=== PATIENT | female | born 1980 | race Caucasian/White ===

== ENCOUNTER 2021-10-10 13:32 | Outpatient (REF) | payer BC, SELFPAY ==
[2021-10-10 16:10] LABS: CT PCR NOT DETECTED (Not Detect.); NG PCR NOT DETECTED (Not Detect.)
[2021-10-11 11:03] LABS: BV Int Neg Control Negative (Negative); BV Int Pos Control Positive (Positive)
== END 2021-10-10 13:33 | disposition home or self-care (01) ==
LOC: HO.LAB 13:32
PROVIDERS: PCP Physician Assistant; Visit Provider Advanced Practice Midwife
DX: R30.0 Dysuria (principal); L29.2 Pruritus vulvae; Z20.2 Contact with and (suspected) exposure to infections with a predominantly sexual mode of transmission
CPT/HCPCS: 81003; 81025; 87086; 87480; 87491; 87510; 87591; 87660

== ENCOUNTER 2022-02-01 09:23 | Outpatient (REF) | payer BC, SELFPAY ==
--- NOTE | ~2022-02-01 | MM_ITS ---
EXAMINATION: MM SCREENING DIGITAL BREAST TOMOSYNTHESIS, BILATERAL CLINICAL INFORMATION: Screening. Asymptomatic. Age 41. No prior mammography. The lifetime risk of breast cancer based on the Tyrer-Cuzick Model is 11%. COMPARISON: None (current study represents initial baseline exam). TECHNIQUE: Digital breast tomosynthesis is performed in both the craniocaudal and mediolateral oblique views along with computer-aided detection (CAD). Synthesized 2D images are generated from the tomosynthesis. FINDINGS: The breasts are heterogeneously dense, which may obscure small masses (ACR BI-RADS breast composition Category c). Breast tissue composition borders on average fibroglandular. There are no significant masses, abnormal calcifications, or other abnormalities. The axilla and skin contours are unremarkable. MM/MM tomosynthesis screening BI IMPRESSION: No mammographic evidence of malignancy. ASSESSMENT: BI-RADS 1: Negative RECOMMENDATION: Routine annual mammography screening. This patient's information was entered into a reminder system with a target due date for their next mammogram.
== END 2022-02-01 09:24 | disposition home or self-care (01) ==
LOC: HO.MAMMO 09:23
PROVIDERS: Visit Provider Advanced Practice Midwife
DX: Z12.31 Encounter for screening mammogram for malignant neoplasm of breast (principal)
CPT/HCPCS: 77063; 77067

== ENCOUNTER 2024-03-24 07:40 | Outpatient (AMB) | payer OTHER, SELFPAY ==
--- NOTE | 2024-03-24 07:41 | A.OFFVIS_ITS ---
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 Doing well with no concerns. She tries to eat healthy and stays active with exercise, walking. Regular monthly menses. Currently is sexually active. has vasectomy. She denies vaginal itching and irritation. STI screening offered; she accepts. Denies family history of ovarian cancer. Family history of colon and breast cancer. Last pap smear 2017, negative. Mammogram: not up to date. [facility] Medical History (Updated 03/24/24 @ 07:55 by Alison Westbrook CNM) History of anxiety Family History (Updated 03/24/24 @ 07:48 by INEZ Brody) Maternal Grandmother Colon cancer Maternal Aunt History of breast cancer Social History Alcohol intake: never Patient Tobacco Use Status: Never used Tobacco Sexual orientation: Straight/Heterosexual Gender identity: Female Female Reproductive History Menstrual Date of last menstrual period: 02/23/24 control method: other (vasectomy) Total pregnancies: 6 Full term: 4 Number of Living Children: 4 Date of last pap smear: 05/04/18 (@[facility]) Date of Mammogram: 02/01/22 ([facility] 1) Review of Systems Const All systems reviewed & are unremarkable except as noted in HPI and below Reports as per HPI Eyes Reports no additional complaints ENT Reports no additional complaints Card Reports no additional complaints Resp Reports no additional complaints GI Reports as per HPI and Reports no additional complaints Reports as per HPI Musc Reports no additional complaints Skin/Breast Reports as per HPI Neuro Reports no additional complaints Psych Reports no additional complaints Endo Reports no additional complaints Russ/Lymph Reports no additional complaints Aller/Immun Reports no additional complaints Physical Exam Vital Signs: Last Vital Signs BP 110/68 03/24/24 07:43 BMI result Body Mass Index 29.2 Const General: cooperative, healthy appearing, no acute distress, well developed and alert Orientation/consciousness: patient oriented x3 HEENT Head: Yes normal to inspection Eyes General: appearance normal, both eyes and all related structures Neck Neck: Yes normal visual inspection Thyroid: Thyroid normal Chest Chest palpation & inspection: normal inspection of the chest and other (no puckering, dimpling, peau de orange, retraction, discharge, masses) Breast/axilla inspection: normal inspection of the breasts Breast/axilla palpation: normal palpation of the breasts Resp Effort & Inspection: normal respiratory effort GI Inspection: Yes normal to inspection Palpation (GI): Soft to palpation Rectal Exam - Female: deferred General: Yes bladder normal to palpation External Female Exam: normal external appearance and normal appearance of the urethra Speculum Exam - Vagina: normal appearance of the vagina, normal palpation and normal vaginal discharge Speculum Exam - Cervix: normal appearance of the cervix, normal palpation and Other cervical findings present (Bled slightly with Pap) Bimanual exam- vagina & uterus: normal bimanual exam, normal palpation, uterine size normal, bladder normal to palpation, normal palpation and non-tender Bimanual Exam- Adnexa, other: no masses Skin General skin exam: no rashes or lesions noted Rashes: no rashes Neuro General: patient oriented x3 Cognition (Neuro): normal cognition Extrem General: Yes normal to inspection Psych Attitude: cooperative Thought process: Normal thought process present Assessment & Plan Assessment & Plan (1) Encounter for well woman exam with routine gynecological exam: Code(s): Z01.419 - Encounter for gynecological examination (general) (routine) without abnormal findings Category: Medical Plan Discussed: Current recommendations for pap smears per ASCCP guidelines. Breast awareness and periodic breast exams. Maintain a healthy lifestyle including a well balanced diet and routine exercise. Mammogram yearly. Colonoscopy >45, or at risk sooner. Patient verbalizes understanding and agrees to the plan of care. She was given opportunity to ask questions and all questions were answered to the best of my ability. RTO in one year for annual crop nutrition scientist examination. This note is constructed using voice recognition software. While every effort has been made to ensure accuracy, synthetic department supervisor errors may have been included. Orders: Orders MM tomosynthesis screening BI Today Z12.31 - Encounter for screening mammogram for malignant neoplasm of breast Coding Level of Care Code Est Pt Prev Care 40-64y(42563) Diagnoses Encounter for well woman exam with routine gynecological exam Z01.419
[2024-03-24 07:43] VITALS: BP 110/68; BMI 29.2
== END 2024-03-24 08:17 | disposition home or self-care (01) ==
PROVIDERS: PCP Physician Assistant; Visit Provider Advanced Practice Midwife
DX: Z01.419 Encounter for gynecological examination (general) (routine) without abnormal findings (principal)
CPT/HCPCS: 99396

== ENCOUNTER 2024-03-24 07:40 | Outpatient (REF) | payer OTHER, SELFPAY | END 2024-03-24 07:41 | disposition home or self-care (01) | LOC: HO.LAB 07:40 | PROVIDERS: PCP Physician Assistant; Visit Provider Advanced Practice Midwife | DX: Z13.89 Encounter for screening for other disorder (principal) ==

== ENCOUNTER 2024-03-24 08:10 | Outpatient (REF) | payer OTHER, SELFPAY ==
[2024-03-24 17:39] LABS: Bacterial Vaginosis PCR NEGATIVE (Negative); Candida Group PCR NOT DETECTED (Not Detect); Candida glab krusei PCR NOT DETECTED (Not Detect); Trichomonas vaginalis PCR NOT DETECTED (Not Detect)
[2024-03-24 17:59] LABS: CT PCR NOT DETECTED (Not Detect.); NG PCR NOT DETECTED (Not Detect.)
[2024-03-26 15:58] LABS: HPV mRNA E6/E7 Not Detected (Not Detected)
== END 2024-03-24 08:11 | disposition home or self-care (01) ==
LOC: HO.LNP 08:10
PROVIDERS: Visit Provider Advanced Practice Midwife
DX: N89.8 Other specified noninflammatory disorders of vagina (principal)
CPT/HCPCS: 0352U; 87491; 87591; 87624; 88175

== ENCOUNTER 2025-07-18 14:41 | Outpatient (AMB) | payer OTHER, SELFPAY ==
--- NOTE | 2025-07-18 15:35 | AM.OFFWIN_ITS ---
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 - Her symptoms began this morning. - She reports that her son was dismissed from school with a fever on Friday, and her other child also has it, suggesting a viral illness is circulating in her household. - Associated symptoms include a cough an d nausea after trying to eat toast. - She denies nasal congestion. - For symptom management, she has taken Motrin and DayQuil. - She has a history of mild asthma. - She denies recent travel, CP, SOB, abd pain or diarrhea. - She tried eating toast and had nausea. Physical Exam General: Cooperative, healthy appearing, comfortable and no acute distress Orientation/consciousness: Patient oriented x3 Limitations: No limitations Head: Normal to inspection Ears: Hearing grossly normal bilaterally, external ears normal and TM's normal bilaterally Nose: Normal external nose present, normal nares present, and no nasal discharge present. Face and sinus: Sinuses nontender to palpation. Mouth: Normal oral and palatal mucosa present and moist mucous membranes noted. Throat: Tonsils normal. Uvula is midline. Posterior oropharynx with erythema and no exudates. Eyes: Appearance normal, both eyes and all related structures Neck: Normal visual inspection, full ROM. No lymphadenopathy noted. Respiratory: Clear to auscultation bilaterally. Normal respiratory effort, able to speak in complete sentences. No respiratory distress, not tachypneic, no tripod positioning and no use of accessory muscles. Cardiovascular: Regular rate and rhythm. Normal S1 and S2 Skin: No rashes or lesions noted Patient was informed and verbally consented to the use of an ambient scribe for clinic note documentation during this visit [facility] Medical History (Updated 03/24/24 @ 07:55 by Alison Westbrook CNM) History of anxiety Family History (Updated 03/24/24 @ 07:48 by INEZ Brody) Maternal Grandmother Colon cancer Maternal Aunt History of breast cancer Social History Alcohol intake: never Patient Tobacco Use Status: Never used Tobacco Sexual orientation: Straight/Heterosexual Gender identity: Female Review of Systems Const All systems reviewed & are unremarkable except as noted in HPI and below Physical Exam Vital Signs: Last Vital Signs Temp 100.3 F 07/18/25 15:36 Pulse 104 H 07/18/25 15:36 BP 104/66 07/18/25 15:36 Pulse Ox 99 07/18/25 15:36 Oxygen Delivery Method Room Air 07/18/25 15:36 BMI result Body Mass Index 28.1 Results AMB Rapid Strep AMB Rapid Strep Negative Last Edit by Diana Rodriguez CMA on 07/18/25 16:1 6 Assessment & Plan Assessment & Plan (1) Sore throat: Code(s): J02.9 - Acute pharyngitis, unspecified (2) Cough: Code(s): R05.9 - Cough, unspecified Qualifiers: Cough type: acute Qualified Code(s): R05.1 - Acute cough Plan Most likely Viral Syndrome rapid was negative plan - The patient's presentation with myalgia, headache, pharyngitis, and cough following exposure to family members with fever is consistent with a viral illness. - A rapid strep test was negative, making a bacterial cause less likely. - Awaiting results from a viral culture for further assessment. - Recommended symptomatic management by alternating Tylenol and Motrin. - Advised to adhere to a clear liquid diet due to associated nausea. - A prescription cough medicine will be sent to the pharmacy. - will give her a work note - follow up with PCP Orders: Orders SARS-CoV2/FLU/RSV Today R09.89 - Other specified symptoms and signs involving the circulatory and respiratory systems AMB Rapid Strep Screen Today Z13.9 - Encounter for screening, unspecified Medications: New benzonatate 100 mg PO bid-tid PRN 21 caps 0RF Cough 7 days Coding Level of Care Code Est Pt Level 3 (53664) Diagnoses Sore throat J02.9 Acute cough R05.1 Cough type: acute
[2025-07-18 15:36] VITALS: BP 104/66; PULSE 104; TEMP 37.9; O2SAT 99; BMI 28.1
--- OUTSIDE RECORDS SUMMARY | 2025-07-18 21:11 | XMS_ITS | Clinical Summary ---
Author Organization [address] Address [address] [place] [id number] Phone Care Team Providers Care Conveyor Belt Repairer Name Role Phone Cyndi Weston MD Primary Care Provider [phone] Allergies No known active allergies Medications sertraline (ZOLOFT) 50 mg tablet Take 1 tablet (50 mg total) by mouth 1 (one) time each day. 05/25/2024 Active cholecalciferol (VITAMIN D-3) 50 mcg (2,000 unit) capsule Take 1 capsule (2,000 Units total) by mouth. 11/19/2023 Active Active Problems Problem Noted Date Diagnosed Date Vitamin D deficiency 11/19/2023 Anxiety disorder 07/23/2022 Intermittent palpitations 12/14/2020 Marijuana use 12/14/2020 Overweight (BMI 25.0-29.9) 04/11/2011 Immunizations Immunization Administration Dates Next Due Hepatitis B (Qjvkzxn-V-Morcl , Recombivax HB-Adult) 19yo and older 12/09/2007 Influenza Quadravalent, MDCK , 0.5ml, preservative free (Flucelvax) 6mo and older 07/19/2020 MMR, measles mumps and rubel la Live (Priorix; M-M-R II) 12mo and older 08/09/2014 Surgical History Surgery Date Site/Laterality Comments WISDOM TOOTH EXTRACTION PROCEDURE: HISTORICAL WISDOM TEETH EXTRACTION Medical History Medical History Date Comments Anxiety disorder DX:Anxiety diso rder Vitamin D deficiency 11/19/2023 DX:Vitamin D deficiency Family History Medical History Relation Name Comments Breast cancer Aunt maternal unilateral Heart attack Father Stroke Father HTN Other: unknown cancer Maternal Grandmother Diabetes Mother depression/bipo lar Alzheimer's disease Paternal Grandmother Other: lupus Uncle paternal Relation Name Status Comments Aunt maternal Alive Father Alive Maternal Grandfather unknown Other Maternal Grandmother Mother Alive Paternal Grandfather unknown Paternal Grandmother Alive Uncle paternal Alive Social History Tobacco Use Types Packs/Day Years Used Date Smoking Tobacco: Never Smokeless Tobacco: Never Alcohol Use Standard Drinks/Week Comments Yes 0 (1 standard drink = 0.6 oz pur e alcohol) Comments Unknown Sex and Gender Information Value Date Recorded Sex Assigned at Female 07/23/2023 2:53 PM EST Legal Sex Female 9:00 AM EST Gender Identity Female 07/23/2023 2:53 PM EST Sexual Orientation Not on file Last Filed Vital Signs Vital Sign Reading Time Taken Comments Blood Pressure 101/64 05/25/2024 3:45 PM EDT Pulse 74 05/25/2024 3:45 PM EDT Temperature - - Respiratory Rate - - Oxygen Saturation - - Inhaled Oxygen Concentration - - Weight 78.9 kg (174 lb) 05/25/2024 3:45 PM EDT Height 162.6 cm (5' 4 ) 05/25/2024 3:45 PM EDT Body Mass Index 29.87 05/25/2024 3:45 PM EDT Plan of Treatment Health Maintenance Due Date Last Done Comments Breast Cancer Screening 1981 DTaP,Tdap,and Td Vaccines (1 - Tdap) 2000 Hepatitis B Vaccines (2 of 3 - 19+ 3-dose series) 01/06/2008 12/09/2007 HPV Vaccines (1 - 3-dose SCD M series) 2008 HIV Screening 07/13/2022 Hepatitis C Screening 07/13/2022 Social Influencers of Health Screening 07/13/2022 Depression Screening 08/04/2024 05/25/2024 COVID-19 Vaccine (1 - 2024-2 6 season) 2025 Influenza Vaccine (#1) 2025 07/19/2020 Cervical Cancer Screening: P ap Smear 05/24/2025 05/24/2022 Cholesterol Screening (Lipid Panel) 07/23/2027 07/23/2022 RSV Immunization Adult Patie nts (1 - 1-dose 75+ series) 2056 MMR Vaccines Aged Out 08/09/2014 No longer eligi ble based on patient's age to complete this topic HIB Vaccines Aged Out No longer eligi ble based on patient's age to complete this topic Hepatitis A Vaccines Aged Out No long er eligible based on patient's age to complete this topic IPV Vaccines Aged Out No longer eligi ble based on patient's age to complete this topic Meningococcal ACWY Vaccine Aged Out N o longer eligible based on patient's age to complete this topic Meningococcal B Vaccine Aged Out No l onger eligible based on patient's age to complete this topic Pneumococcal Vaccine: Pediat rics (0 to 5 Years) and At-Risk Patients (6 to 49 Years) Aged Out No longer eligi ble based on patient's age to complete this topic RSV Immunization Patients Un lilli 20 months Aged Out No longer eligible b ased on patient's age to complete this topic Varicella Vaccines Aged Out No longer eligible based on patient's age to complete this topic Procedures Procedure Name Priority Date/Time Associated Diagnosis Comments DEPRESSION SCREENING Routine 05/25/2024 LIPID PANEL Routine 07/23/2022 PAP SMEAR Routine 05/24/2022 from Last 3 Months or Most Recently Relevant to Health Maintenance Results * Depression Screening (05/25/2024) Pathologist [facility] Depression Screening Abstracted [facility] Provider HEALTH MAINTENANCE Final Result * Lipid panel (07/23/2022) [facility] LDL/HDL Ratio 2 0 - 4 Triglycerides 74 0 - 150 mg/dL Cholesterol 144 0 - 200 mg/dL HDL 61 >=40 mg/dL LDL Cholesterol 69 0 - 100 mg/dL Blood Venous blood specimen / Unknown Historical Provider LAB BLOOD ORDERABLES [place] Result * Pap Smear (05/24/2022) Pathologist [facility] Pap smear No Interpretation , Abstracted Historical Provider HEALTH MAINTENANCE Final Result from Last 3 Months or Most Recently Relevant to Health Maintenance Insurance [facility] Care Teams Conveyor Belt Repairer Relationship Specialty Start Date End Date Cyndi Weston MD [address] [place] [phone] PCP - General Internal Medicine 05/15/21
--- OUTSIDE RECORDS SUMMARY | 2025-07-18 21:11 | XMS_ITS ---
Author Name [facility] Organization Unknown Care Team Organization Name Specialty Phone Email Start Date End Da te [facility] Cyndi Weston Primary Care 01/10/2023 [facility] Franny Madden Primary Care 12/09/202203/22 [facility] Deirdre Justin Primary Care 06/11/2022 03/22/2024
--- OUTSIDE RECORDS SUMMARY | 2025-07-18 21:11 | XMS_ITS | Encounter Summary ---
Author Organization [facility] Address [address] [place] [address] Care Team Providers Care Padding Machine Operator Name Role Phone Cyndi Weston MD Primary Care Provider [phone] Reason for Visit * Reason Onset Date Comments Abdominal Pain 09/14/2024 Vomiting 09/14/2024 Diarrhea 09/14/2024 Encounter Details Date Type Department Care Team ([facility] st Contact Info) Description 09/14/2024 Nurse Triage Adult Medicine [facility] [address] [place] [address] Cyndi Weston MD [address], [place] Social History Tobacco Use Types Packs/Day Years [...] PM EST Sexual Orientation Not on file documented as of this encounter Progress Notes * Estrella Cooper RN - 09/14/2024 9:28 AM EST Pt. States her abd. Is soft but the pain is 7/10 and is in the left lower . She sts her stool is diarrhea and it is dark when asked if black she stated it' pretty dark no cp,sob or lightheadedness now. Advised with 7/10 abd. Pain to be evaluated in the ER . Pt. Agrees and will have someone take her Reason for Disposition [1] MILD-MODERATE pain AND [2] constant AND [3] present > 2 hours Answer Assessment - Initial Assessment Questions 1. LOCATION: Where does it hurt? Slightly below naval 2. RADIATION: Does the pain shoot anywhere else? (e.g., chest, back) no radiation 3. ONSET: When did the pain begin? (e.g., minutes, hours or days ago) Last night , vomiting , diarrhea in a.m the pain started 4. SUDDEN: Gradual or sudden onset? Came on suddenly 5. PATTERN Does the pain come and go, or is it constant? - If it comes and goes: How long does it last? Do you have pain now? (Note: Comes and goes means the pain is intermittent. It goes away completely between bouts.) - If constant: Is it getting better, staying the same, or getting worse? (Note: Constant means the pain never goes away completely; most serious pain is constant and gets worse.) Constant dull annoying pain 6. SEVERITY: How bad is the pain? (e.g., Scale 1-10; mild, moderate, or severe) - MILD (1-3): Doesn't interfere with normal activities, abdomen soft and not tender to touch. - MODERATE (4-7): Interferes with normal activities or awakens from sleep, abdomen tender to touch. - SEVERE (8-10): Excruciating pain, doubled over, unable to do any normal activities. Mild to moderate increase discomfort when trying to walk around 7/10 at present time 7. RECURRENT SYMPTOM: Have you ever had this type of stomach pain before? If Yes, ask: When was the last time? and What happened that time? 8. CAUSE: What do you think is causing the stomach pain? Yes when I had a virus 9. RELIEVING/AGGRAVATING FACTORS: What makes it better or worse? (e.g., antacids, bending or twisting motion, bowel movement) Walking increases pain laying down improves pain 10. OTHER SYMPTOMS: Do you have any other symptoms? (e.g., back pain, diarrhea, fever, urination pain, vomiting) N/V and diarrhea, has chills no fever , no dizziness , no cp, no sob . Abd, is soft 11. : Is there any chance you are ? When was your last menstrual period? Last day of period last Friday Protocols used: Abdominal Pain - Female-A-AH * Susu Riley - 09/14/2024 8:43 AM EST Patient call requires triage: Symptoms patient is presenting: c/o abdominal pain, vomiting, diarrhea, body aches and chills How long has patient had these symptoms?: 3am this morning For ALL patients calling to schedule any appointment (routine, sick visit, follow up, consult, etc.) in the outpatient setting please ask the following questions: Do you have fever of higher than 101, sore throat with difficulty swallowing or severe shortness ofbreath? no If YES to any of these above symptoms, send a message to triage and do not book. Red dot. If no, an audio or video visit should be booked. Have you had close contact with someone with Coronavirus in the last 14 days? no Have you traveled abroad? no Have you traveled recently to another state outside of [place], [place], [place], [place], [place], [place], [place]? no o If yes, did you quarantine for 14 days or have a negative covid test? no If yes to any of the above, patient is not to be scheduled in office until after 14 day quarantine or negative covid test. If pain or injury related was it due to an accident at work or from a motor vehicle accident? If yes, date of accident/Injury: No If yes, gather 3rd alliance party insurance information Third Green Party Information: not applicable PCP: Cyndi Weston MD Payor: [facility] / Plan: [facility] / Product Type: *No Product type* / documented in this encounter Plan of Treatment Not on file documented as of this encounter Visit Diagnoses Not on filedocumented in this encounter Care Teams Padding Machine Operator Relationship Specialty Start Date End Date Cyndi Weston MD [address] [place] [phone] PCP - General Internal Medicine 05/15/21 documented as of this encounter
== END 2025-07-18 16:34 | disposition home or self-care (01) ==
PROVIDERS: PCP Physician Assistant; Visit Provider Physician Assistant Medical
DX: J02.9 Acute pharyngitis, unspecified (principal); R05.1 Acute cough; Z13.9 Encounter for screening, unspecified

== ENCOUNTER 2025-07-18 14:41 | Outpatient (REF) | payer OTHER, SELFPAY ==
[2025-07-19 13:06] LABS: Resp Syncy Virus RNA Qual PCR NEGATIVE (Negative); SARS COV2 PCR INHOUSE NEGATIVE (Negative)
== END 2025-07-18 14:42 | disposition home or self-care (01) ==
LOC: HO.LNP 14:41
PROVIDERS: Physician Assistant Medical; PCP Physician Assistant
DX: R05.1 Acute cough (principal); J02.9 Acute pharyngitis, unspecified; R09.89 Other specified symptoms and signs involving the circulatory and respiratory systems
CPT/HCPCS: 87637; 87880